=== PATIENT | male | born 1950 | race Caucasian/White ===

== ENCOUNTER 2019-03-31 08:50 | Day surgery (SDC) | payer MEDICARE ==
--- NOTE | 2019-03-30 17:48 | EKG ---
Test Date: 2019-03-30 Test Time: 12:56:45 Cloth Finishing Range Back Tender: MAULIK MEASUREMENT RESULTS: Intervals: Rate: 60 IN: 176 QRSD: 86 QT: 388 QTc: 388 [place]: P: 43 IN: 176 QRS: 57 T: 54 INTERPRETIVE STATEMENTS: Normal sinus rhythm Normal ECG Compared to ECG 11/06/2009 18:28:52 No significant changes Electronically Signed On 03-30-19 17:47:56 COPY MACHINE OPERATOR by Stephan Mendoza
--- OUTSIDE RECORDS SUMMARY | 2019-03-31 08:53 | XMS REPORT ---
:1950 [facility] Address [address] [place] [address] Dr. Tim [address] [place] [id number] Care Team Providers Name Role Phone Unavailable Unavailable Unavailable Problems This patient has no known problems. Allergies, Adverse Reactions, Alerts This patient has no known allergies or adverse reactions. Medications This patient has no known medications.
[2019-03-31 09:30] LABS: Protime INR 1.54
[2019-03-31] MEDS: OXYMETAZOLINE HCL 0.05% 15ML NAS ONE ×5 (09:37→13:54)
[2019-03-31] MEDS ORDERED: NA CHLORIDE 0.9% 1,000 ML ONE (09:37)
[2019-03-31] MEDS ORDERED: NA CHLORIDE 0.9% 500 ML ONE (10:57)
[2019-03-31] MEDS ORDERED: OXYMETAZOLINE HCL 0.05% 15ML NAS ONE (10:57)
[2019-03-31] MEDS ORDERED: MIDAZOLAM HCL 2 MG/2 ML INJ ONE (11:39)
[2019-03-31] MEDS ORDERED: LIDOCAINE 2% MPF 5 ML VIAL ONE (11:39)
[2019-03-31] MEDS ORDERED: propofoL 200 MG/20 ML VIAL IV ONE (11:39)
[2019-03-31] MEDS ORDERED: FENTANYL CITR 100 MCG/2 ML ONE (11:39)
[2019-03-31] MEDS ORDERED: ROCURONIUM 50 MG/5 ML VIAL IV ONE (11:40)
[2019-03-31] MEDS ORDERED: SUCCINYLCHOLINE 20 MG/ML (10 ML) IV ONE (11:45)
[2019-03-31] MEDS: LIDOCAINE 1% W/EPI 1:100,000 MDV 20 ML VIAL ONE ×2 (12:25→13:02)
[2019-03-31] MEDS: NA CHLORIDE 0.9% 1,000 ML ONE ×2 (13:25→13:39)
[2019-03-31] MEDS ORDERED: ONDANSETRON 4 MG/2 ML VIAL ONE (14:13)
--- NOTE | 2019-03-31 15:03 | P.BOP ---
Preoperative diagnosis: CRS Postoperative diagnosis: CRSwNP Primary procedure: NE with total ethmoid & frontal sinusotomy and sphenoid BSP Public Works Director: NONE,NONE Estimated blood loss: 250ml Specimen: sinus contents Findings: ethmoid/frontal polypoid disease Anesthesia: General Complications: None Implants: Propel contour and standard Fluids & blood products: see anesthesia records Transferred to: Recovery Room Condition: Good
[2019-03-31] MEDS ORDERED: TRAMADOL HCL 50 MG TAB ONE (15:52)
[2019-03-31 16:15] VITALS: BP 133/55; TEMP 97.3; O2SAT 94
--- NOTE | 2019-04-01 16:00 | OP ---
Date of Procedure: 03/31/2019 Surgeon: Sheree Salter MD Preoperative Diagnoses: Chronic sinusitis, chronic anticoagulant use, and history of hypercoagulable state resulting in systemic blood clot. Postoperative Diagnoses: Chronic sinusitis, chronic anticoagulant use, and history of hypercoagulabl e state resulting in systemic blood clot, multiple nasal polyps Procedure: Bilateral nasal endoscopy with balloon dilation of the sphenoid sinus and bilateral nasal cavities with total ethmoidectomy and frontal sinusotomy and use of intraoperative CT navigation. Indication For Procedure: Marko Montoya is a 68-year-old who presented with symptoms of chronic rhin osinusitis. His in-office nasal endoscopy did not demonstrate evidence of nasal polyps. He underwen t treatment with antibiotics and his post treatment CT scan showed mucosal thickening in the sphenoet hmoid recess and sphenoid sinuses as well as persistent opacification of the ethmoid sinuses and fron harvey recess with obstruction of the frontal outflow tract and partial opacification and mucosal thicke ann marie, worse in the left frontal sinus. The risks, benefits, and alternatives to the procedure were d iscussed with the patient, who agreed to proceed. Description Of Procedure: The patient was brought to the operating room. He was placed under genera l anesthesia via oral endotracheal tube. The head of bed was turned 90 degrees. The patient's nasal hairs were trimmed and the nasal cavity was packed with Afrin-soaked pledgets. The headpiece for [employer] Party CT-navigation system was secured to the patient's forehead and the previously obtained CT scan was loaded into the system. The laser pointer was used to register and calibrate the image guid ance system. Accuracy was confirmed by [id number] testing including the tip of the nose, the bas e of the columella, the glabella, and the bilateral medial and lateral canthi, and accuracy was felt to be very good. The patient's face was then prepped and draped in a standard fashion for nasal surg tito. The Afrin-soaked pledgets were removed and a 0-degree endoscope was used to perform a bilateral nasal endoscopy. The balloon device was prepared according to insurance healthcare representative's instructions and due t o planned dissection of the frontal recess and frontal sinuses, a balloon dilation of frontal sinuses was performed in order to aid with identification and dissection in these areas. The device was pas sed just posterior to the uncinate process and the probe was carefully advanced through the frontal r ecess. The recess was dilated and the balloon was removed and a similar procedure was performed on natividad cherry right side, but the balloon device was then reconfigured for use in the sphenoid sinuses and the s phenoid os was cannulated and successfully dilated on both the left and right sides. The attention w as then turned to the ethmoid regions. The root of the left and right middle turbinates was injected with 1% lidocaine with epinephrine to aid in bleeding control. The navigation suctions, including natividad cherry straight and curved suctions, were calibrated to the system and accuracy was confirmed by point-to -point matching. A 0-degree endoscope was used and the ethmoid bulla was dissected using a curette. Bony partitions were removed using a straight, 45, and 90-degree Blakesley. The straight navigation suction was used to aid in dissection along the lamina as bony partitions were removed from both the right and left ethmoid cavities. Pockets of polypoid-appearing mucosa were removed during dissectio n. A 30-degree scope was then used for better visualization along the skull base as additional disse ction was carried out. The 70-degree scope was then used along with a large and small xcrtk-th-esmt and rgbr-jt-helz Giraffe to remove edematous and polypoid tissue from the frontal recess until direct visualization of the frontal sinus was achieved. The lighted guidewire from the balloon dilation de vice was used intermittently to aid in best identification of the true frontal recess due to the degr ee of polypoid tissue. The Afrin-soaked pledgets were applied intermittently into the sinus cavities to aid in hemostasis. During dissection of the frontal recess, the upper portion of the uncinate pr ocess was removed using a 90-degree Blakesley in order to facilitate dissection in this area as well as better visualization of the frontal recess. Once the sinuses were adequately cleaned out, the Pro pel Contour steroid eluting stent was placed under endoscopic guidance into the right and left fronta l recesses in order to aid in direct delivery of steroid in the mucosal lining of these regions. The middle turbinates were stuck some, but destabilized during dissection of the ethmoids and due to the degree of polyposis as well as turbinate destabilization, a Propel steroid-eluting stent was placed within the bilateral ethmoid cavities to prevent lateralization of the turbinate. The patient's nasa l cavity was thoroughly irrigated and suctioned. There was mild oozing and due to the patient's need to resume anticoagulation, the decision was made to place some Xerogel dressing. The dressing was d ivided, folded, and placed within the bilateral ethmoid cavities, and saturated with saline. The radames opharynx was suctioned. The orogastric tube was passed for removal of stomach contents and the patie nt was returned to care of anesthesia for awakening and extubation in the operating room, which proce eded without difficulty. Complications: None. Specimens: Sinus contents. Disposition: The patient will be discharged home later today in the care of his . He will resum e his warfarin in 24 hours. He is also instructed to stop the warfarin 48 hours prior to his first p ostop visit to avoid bleeding complication during initial postoperative debridement and can contact Irma Salter with any further questions or concerns. JULIA/MELINA Voice ID: [id number] Report ID: [id number]
== END 2019-03-31 16:14 | disposition home or self-care (01) ==
LOC: OR 08:50
PROVIDERS: ATTEND Otolaryngology
PROC: 09TV8ZZ Resection of Left Ethmoid Sinus, Via Natural or Artificial Opening Endoscopic (ICD-10-PCS; 2019-03-31)
PROC: 09TU8ZZ Resection of Right Ethmoid Sinus, Via Natural or Artificial Opening Endoscopic (ICD-10-PCS; 2019-03-31)
PROC: 099T8ZZ Drainage of Left Frontal Sinus, Via Natural or Artificial Opening Endoscopic (ICD-10-PCS; 2019-03-31)
PROC: 099S8ZZ Drainage of Right Frontal Sinus, Via Natural or Artificial Opening Endoscopic (ICD-10-PCS; 2019-03-31)
PROC: 8E09XBZ Computer Assisted Procedure of Head and Neck Region (ICD-10-PCS; principal; 2019-03-31 10:15)
DX: J32.4 Chronic pansinusitis (principal); J33.9 Nasal polyp, unspecified; E11.9 Type 2 diabetes mellitus without complications; E07.9 Disorder of thyroid, unspecified; Z79.01 Long term (current) use of anticoagulants; Z86.718 Personal history of other venous thrombosis and embolism; Z88.2 Allergy status to sulfonamides
CPT/HCPCS: 93005; 36415; 85610; 82947 ×2; 88304; 31297; 61782; J2704; J2250; J3010; J7040; J7030 ×2; J2405; 88305; J0330